=== PATIENT | female | born 1985 | race Caucasian/White ===

== ENCOUNTER → 2019-07-23 | Outpatient (REF) | payer OTHER | LOC: M SFHCLERA 15:41 | PROVIDERS: ATTEND Physician Assistant | DX: R30.0 Dysuria (principal) | CPT/HCPCS: 81002; 81025; 87088; 87186; G0463 ==

== ENCOUNTER → 2021-08-21 | Outpatient (REF) | payer OTHER | LOC: M LAB REF 16:11 | PROVIDERS: ATTEND Internal Medicine | DX: R30.0 Dysuria (principal) ==

== ENCOUNTER 2023-05-04 05:55 | Day surgery (SDC) | payer OTHER ==
[~2023-05-04] VITALS: Ht 165.1 cm; Wt 90.0 kg
[~2023-05-04 05:55] MED LIST: CETI-24 PO; FLUTISP NARES; IRON27TA2 PO
[2023-05-04] MEDS ORDERED: ceFAZolin SOD 2 GM in IV 1 EA IV ONE (06:00)
[2023-05-04] MEDS: LR 1,000 ML IV SCH ×2 (06:45→10:45)
[2023-05-04 06:51] LABS: HCG, SERUM QUALITATIVE NEGATIVE (NEGATIVE); HEMATOCRIT 39.5 % (36.0-47.0); HEMOGLOBIN 12.4 g/dl (12.0-15.5); MEAN CORPUSCULAR HEMOGLOBIN 26.1 pg (27.0-33.0); MEAN CORPUSCULAR HGB CONC 31.4 g/dl (32.0-36.5); PLATELET COUNT, AUTOMATED 257 10^3/uL (150-450); RED BLOOD COUNT 4.76 10^6/uL (4.00-5.40); WHITE BLOOD COUNT 7.4 10^3/uL (4.0-10.0)
[2023-05-04] MEDS ORDERED: LIDOCAINE 2% 100MG/5ML SDV (FOR ANES.) As Ordered ONE (07:13)
[2023-05-04] MEDS ORDERED: MIDAZOLAM INJ 2MG/2ML VIAL As Ordered ONE (07:13)
[2023-05-04] MEDS ORDERED: fentaNYL 100 MCG/2 ML INJECTION As Ordered ONE (07:13)
[2023-05-04] MEDS ORDERED: ROCURONIUM BROMIDE 50MG/5ML VIAL As Ordered ONE (07:15)
[2023-05-04] MEDS ORDERED: propofoL 200 MG/20 ML VIAL As Ordered ONE ×2 (07:15→07:16)
[2023-05-04] MEDS ORDERED: SUGAMMADEX SODIUM 500 MG/5 ML VIAL (BRIDION) As Ordered ONE (07:18)
[2023-05-04] MEDS ORDERED: ONDANSETRON 4MG 2ML VIAL As Ordered ONE (07:20)
[2023-05-04] MEDS ORDERED: KETOROLAC 60MG 2ML VIAL As Ordered ONE (07:20)
[2023-05-04] MEDS ORDERED: fentaNYL 250 MCG/5 ML INJECTION As Ordered ONE (08:20)
[2023-05-04] MEDS ORDERED: METOCLOPRAMIDE INJ 10MG/2ML VIAL IV PRN (10:20)
[2023-05-04] MEDS ORDERED: fentaNYL 100 MCG/2 ML INJECTION IV PRN (10:20)
[2023-05-04] MEDS ORDERED: MEPERIDINE 25 MG/ML 1ML VIAL IV PRN (10:20)
[2023-05-04] MEDS ORDERED: ONDANSETRON 4MG 2ML VIAL IV PRN ×2 (10:20)
[2023-05-04] MEDS: fentaNYL 100 MCG/2 ML INJECTION IV PRN ×2 (10:41→10:50)
[2023-05-04] MEDS ORDERED: traMADol 50 MG TAB PO PRN (11:00)
[2023-05-04 13:03] VITALS: BP 121/71; TEMP 98.1; O2SAT 98
== END 2023-05-04 13:24 | disposition home or self-care (01) ==
LOC: M SDC 05:55
PROVIDERS: ATTEND Obstetrics & Gynecology
DX: N93.9 Abnormal uterine and vaginal bleeding, unspecified (principal); N94.6 Dysmenorrhea, unspecified; R10.2 Pelvic and perineal pain; N80.9 Endometriosis, unspecified; Z87.891 Personal history of nicotine dependence; E28.2 Polycystic ovarian syndrome; Z79.899 Other long term (current) drug therapy; Z88.5 Allergy status to narcotic agent; Z88.8 Allergy status to other drugs, medicaments and biological substances; G47.30 Sleep apnea, unspecified
CPT/HCPCS: 36415; 58571; 84703; 85027; 86850; 86900; 86901; 88307; J0665; J0690; J1100; J1885; J2250; J2405; J2765; J3010